=== PATIENT | female | born 1970 | race Caucasian/White ===

== ENCOUNTER → 2017-12-19 | Day surgery (SDC) | payer OTHER ==
--- OUTSIDE RECORDS SUMMARY | 2017-12-19 09:48 | XMS REPORT ---
:1970 Author Organization eClinicalWorks Care Team Providers Name Role Phone Franco, Na Provider Role Unavailable Allergies, Adverse Reactions, Alerts Substance Reaction Event Type N.K.D.A. Info Not Available Non Drug Allergy Problems Problem Type Condition Code Onset Dates Condition Status Assessment Oral contraceptive prescribed Z30.011 Active Problem Contraception Z30.9 Active Assessment IUD contraception Z97.5 Active Medications Medication Code Code Instructions Start End Date Status Dosage System Date Blisovi [facility] [id number] 1.5-30 MG-MCG August 13, Active 1 tablet 1.5/30 Orally Once a 2017 Results No Known Results Summary Purpose eClinicalWorks Submission
--- NOTE | 2017-12-19 13:12 | RAD REPORT ---
EXAM DESCRIPTION: US - Breast Core BX w/US Guidance - 12/19/2017 10:13 am CLINICAL HISTORY: Lateral right breast massN63.11 COMPARISON: Mammogram and ultrasound study December 04, 2017. TECHNIQUE: The patient presents for ultrasound-guided core biopsy of a previously evaluated periareo lar mass in the 8-9 o'clock right breast. The procedure, risks and alternatives were discussed with the patient in detail. After answering all questions, both oral and written consent were obtained. The patient had no contraindicated allergy or medication history. Time-out procedure was performed. Preliminary imaging again identified an approximately 2 cm mass in the lateral periareolar right [address]. There was a hypoechoic bilobed appearance at preliminary evaluation. Anterior right breast was prepped and draped in the usual sterile fashion. From an inferior approach, skin and deeper tissues were anesthetized with 1% lidocaine. Under direct sonographic visualization a 14 gauge vacuum assisted biopsy needle was advanced. The tip was placed at the inferior margin of t he mass and a 2 cm core biopsy was obtained. Imaging showed transit of the needle through the substan ce of the mass. A second core biopsy was obtained through the bilobed hypoechoic component that was m ore retroareolar in location. Again, sonographic guidance was utilized and imaging showed transit of the biopsy needle through the substance of the mass. At the conclusion of the procedure, a localization clip was placed under direct sonographic visualiza tion. At the conclusion of the procedure hemostasis was obtained at the puncture site. No evidence for heriberto ramakrishna or other biopsy complication. Post-procedure care and precaution instructions were given to the patient. All biopsy material was given to pathology for histology/cytology assessment. IMPRESSION: 1. Ultrasound-guided core biopsy was performed of the periareolar right breast as detail ed. 2. Ultrasound-guided placement of a localization clip performed.
== END | disposition home or self-care (01) ==
LOC: DS 09:43
PROVIDERS: ATTEND Clinical Nurse Specialist Women's Health
PROC: 0HBT3ZX Excision of Right Breast, Percutaneous Approach, Diagnostic (ICD-10-PCS; principal; 2017-12-19)
DX: C50.911 Malignant neoplasm of unspecified site of right female breast (principal); Z17.0 Estrogen receptor positive status [ER+]
CPT/HCPCS: 19083; 88305

== ENCOUNTER 2017-12-30 06:34 | Day surgery (SDC) | payer OTHER ==
[2017-12-27 13:18] LABS: Absolute Lymphocytes (CBC) 2.5 K/uL (0.7-4.9); Absolute Monocytes 0.6 K/uL (0.1-1.3); Absolute Neutrophil 5.2 K/uL (1.8-8.0); Basophils % 0.7 % (0-1.3); Eosinophils % 1.6 % (0-4.4); Hematocrit 40.2 % (36.0-45.0); Lymphocytes % 29.9 % (15.3-44.8); MCH 31.2 pg (27.0-35.0); MCV 90.4 fL (80-100); MPV 9.4 fL (7.6-11.3); Monocytes % 6.9 % (3.3-12.3); RBC Red Blood Cell Count 4.44 M/uL (3.86-4.86)
[2017-12-27 13:37] LABS: BUN Blood Urea Nitrogen 10 mg/dL (7-18); Bicarbonate 27 mmol/L (21-32); Glucose Level 99 mg/dL (74-106); Potassium 3.7 mmol/L (3.5-5.1); Sodium Level 139 mmol/L (136-145)
--- NOTE | 2017-12-27 13:53 | RAD REPORT ---
EXAM DESCRIPTION: Kateryna Lane (2 Views)12/27/2017 1:26 pm CLINICAL HISTORY: Breast cancer/preop exam COMPARISON: 2008 FINDINGS: The lungs appear clear of acute infiltrate. The heart is normal size IMPRESSION: No acute abnormalities displayed
--- NOTE | 2017-12-28 04:19 | EKG ---
Test Date: 2017-12-27 Test Time: 13:11:31 Stencil Sprayer: ARCADIO MEASUREMENT RESULTS: Intervals: Rate: 67 IL: 140 QRSD: 70 QT: 420 QTc: 443 [place]: P: 72 IL: 140 QRS: 40 T: 53 INTERPRETIVE STATEMENTS: Normal sinus rhythm Possible Left atrial enlargement Borderline ECG Compared to ECG 01/31/2009 08:19:38 Sinus bradycardia no longer present Electronically Signed On 12-28-17 04:17:17 CDT by Carlos Doshi
--- OUTSIDE RECORDS SUMMARY | 2017-12-30 06:37 | XMS REPORT ---
[...] End Date Status Dosage System Date Blisovi [facility] [id number] 1.5-30 MG-MCG August 13, Active 1 tablet 1.5/30 Orally Once a 2017 Results No Known Results Summary Purpose eClinicalWorks Submission
[2017-12-30] MEDS ORDERED: CEFAZOLIN/SWI 1gm 1 GM/10 ML SYR ONE (06:49)
[2017-12-30] MEDS ORDERED: Ringers Lactate 1,000 ML IV ONE (06:49)
--- NOTE | 2017-12-30 08:09 | RAD REPORT ---
EXAM DESCRIPTION: NM - Lymphoscintigraphy - 12/30/2017 8:03 am CLINICAL HISTORY: Breast cancer, sentinel node biopsy pending COMPARISON: None. TECHNIQUE: Patient was administered 4 periareolar injections using 0.1 millicuries technetium 99 M s ulfur colloid. FINDINGS: Single acquisition was obtained and demonstrates the 4 periareolar injections. There is lo w-level activity in the upper-outer quadrant of the right breast. No axillary activity. Injection time was 0735 hours. IMPRESSION: [place] node injection procedure as detailed.
[2017-12-30] MEDS ORDERED: FENTANYL CITR 100 MCG/2 ML ONE ×2 (08:35→10:05)
[2017-12-30] MEDS ORDERED: ROCURONIUM 50 MG/5 ML VIAL IV ONE (08:35)
[2017-12-30] MEDS ORDERED: PROPOFOL 200 MG/20 ML VIAL IV ONE (08:35)
[2017-12-30] MEDS ORDERED: LIDOCAINE 2% MPF 5 ML VIAL ONE (08:36)
[2017-12-30] MEDS ORDERED: ONDANSETRON HCL 40 MG/20 ML VIAL ONE (08:36)
[2017-12-30] MEDS ORDERED: MIDAZOLAM HCL 2 MG/2 ML INJ ONE (08:36)
[2017-12-30] MEDS: METHYLENE BLUE 0.5% 10 ML AMP ONE ×2 (08:55→09:05)
[2017-12-30] MEDS ORDERED: DEXAMETHASONE 10 MG/ML VIAL ONE (09:11)
[2017-12-30] MEDS ORDERED: NEOSTIGMINE 1 MG/ML -5 ML SYRINGE ONE (10:05)
[2017-12-30] MEDS ORDERED: GLYCOPYRROLATE 0.2 MG/ML SYR ONE (10:05)
[2017-12-30] MEDS ORDERED: MEPERIDINE HCL 50 MG/ML AMP ONE (11:11)
[2017-12-30] MEDS: HYDROMORPHONE HCL 1 MG/ML INJ ONE ×4 (11:12→11:32)
[2017-12-30] MEDS ORDERED: HYDROCODONE/APAP 7.5/325 MG TAB ONE (12:21)
--- NOTE | 2017-12-30 22:19 | OP ---
Date of Procedure: 12/30/2017 Surgeon: Justyn Chris MD Head Of Stock: SUSSY Cote. Preoperative Diagnosis: Right breast cancer. Postoperative Diagnosis: Right breast cancer. Procedure: Right breast mastectomy, sentinel node biopsy, and axillary dissection. Estimated Blood Loss: Minimal. Specimen: Right breast margins free. [place] node, which was positive and axillary dissection. Findings: As above. Anesthesia: General. Complications: None. Drains: FARA #10 flat x2. Disposition: The patient tolerated procedure, stable condition, and taken to recovery in good genera l condition. Procedure In Detail: The patient was brought to the OR and placed in supine position. General anest hesia was begun. The patient was prepped and draped in usual sterile fashion after the right breast was injected with methylene blue and massaged for 5 minutes. Following which the counter for the lym ph node recognition device was used. All counts were recorded in the medical records. A 3 cm incisi on was made in the right axilla and a blue lymph node deep to the subcutaneous tissue was identified. Clips were used to control the vascular pedicles and then the lymph node was removed. It was hard and sent to Pathology for frozen section, it was positive. While the lymph node was being evaluated, a standard mastectomy was done with ellipse of skin incision involving the nipple-areolar complex. Approximately 20 x 8 cm flaps were created superiorly to the clavicle, inferiorly to the insertion of the rectus abdominis muscle, medially to the sternal border, laterally to the anterior border of the latissimus dorsi muscle, and all of the breast tissue off the pectoralis fascia was removed and sent to pathology, and the margins were negative. Once the lymph node came back as positive, then the ax illary dissection was done. Axillary vein, thoracodorsal neurovascular bundle, and the long thoracic neurovascular bundle were identified and Todd's nodes were sampled as well. Vascular clips were n eeded as necessary and the lymph node was dissected. Bleeding was controlled with cautery. Clips we re used as needed and then the specimen was sent to pathology. The entire wound was irrigated. Two drains FARA #10 flat, 1 underneath the flap and 1 in the axilla were placed and secured with 3-0 nylon and then 2-0 chromic and 3-0 chromic used to approximate the subcutaneous tissue and close the skin. Sterile dressing was applied. The patient was awakened and taken to recovery in good general condit ion. Discharge Note: The patient will go to day surgery and home when stable. Disposition: Home. Condition: Stable. Discharge Instructions: Resume home medications and diet. Activity as tolerated. Keep dressing bhavana an and dry. Follow up in my office on and call for appointment. Record FARA output q.12. Te ach patient and family to record as well as strip the tubing p.r.n. Tylenol No. 3 one tablet p.o. q. 4 p.r.n. pain. Keflex 500 mg p.o. q.6. /MODL Voice ID: [id number] Report ID: [id number]
== END 2017-12-30 13:10 | disposition home or self-care (01) ==
LOC: OR 06:34
PROVIDERS: ATTEND Surgery
PROC: 07B50ZX Excision of Right Axillary Lymphatic, Open Approach, Diagnostic (ICD-10-PCS; 2017-12-30)
PROC: 0HTT0ZZ Resection of Right Breast, Open Approach (ICD-10-PCS; principal; 2017-12-30 09:15)
DX: C50.911 Malignant neoplasm of unspecified site of right female breast (principal); C77.3 Secondary and unspecified malignant neoplasm of axilla and upper limb lymph nodes; Z17.0 Estrogen receptor positive status [ER+]
CPT/HCPCS: 36415; 71046; 78195; 80048; 81025; 85025; 88307; 88309; 88331; 88332; 93005; A9541; J0690; J1100; J1170; J2175; J2250; J2405; J2704; J2710; J3010

== ENCOUNTER 2019-05-28 06:32 | Day surgery (SDC) | payer OTHER ==
--- OUTSIDE RECORDS SUMMARY | 2019-05-28 06:36 | XMS REPORT ---
:1970 Author Organization eClinicalWorks Care Team Providers Name Role Phone Herrera Jane Provider Role Unavailable Allergies, Adverse Reactions, Alerts Substance Reaction Event Type N.K.D.A. Info Not Available Non Drug Allergy Problems Problem Type Condition Code Onset Dates Condition Status Assessment Primary osteoarthritis of left knee M17.12 Active Problem Primary osteoarthritis of right M17.11 Active knee Problem Contraception Z30.9 Active Problem Primary osteoarthritis of left knee M17.12 Active Assessment Pain, joint, knee, right M25.561 Active Assessment Primary osteoarthritis of right M17.11 Active knee Assessment Pain, joint, knee, left M25.562 Active Medications Medication Code Code Instructions Start End Status Dosage System Date Date Tamoxifen [facility] [address]-53 Active not Citrate defined Effexor [facility] 0 Active not defined Blisovi Fe [facility] [id number] 1.5-30 MG-MCG August 13, Active 1 tablet 1.5/30 Orally Once a 2017 Results No Known Results Summary Purpose eClinicalWorks Submission
[2019-05-28] MEDS ORDERED: Ringers Lactate 1,000 ML IV ONE (07:20)
[2019-05-28] MEDS ORDERED: propofoL 200 MG/20 ML VIAL IV ONE (07:39)
[2019-05-28] MEDS ORDERED: FENTANYL CITR 100 MCG/2 ML ONE (07:39)
[2019-05-28] MEDS ORDERED: LIDOCAINE 2% MPF 5 ML VIAL ONE (07:39)
[2019-05-28] MEDS ORDERED: MIDAZOLAM HCL 2 MG/2 ML INJ ONE (07:39)
[2019-05-28] MEDS ORDERED: LIDOCAINE 1% W/EPI 1:100,000 MDV 20 ML VIAL ONE (07:52)
[2019-05-28] MEDS ORDERED: SILVER NITRATE 1 APPL TOP ONE (07:53)
[2019-05-28] MEDS ORDERED: ONDANSETRON 4 MG/2 ML VIAL ONE (08:27)
[2019-05-28] MEDS ORDERED: dexAMETHasone 10 MG/ML VIAL ONE (08:27)
[2019-05-28] MEDS ORDERED: KETOROLAC 30 MG/ML INJ ONE (08:43)
[2019-05-28] MEDS ORDERED: DIPHENHYDRAMINE 50 MG/ML VIAL ONE (09:01)
[2019-05-28] MEDS: HYDROMORPHONE HCL 1 MG/ML INJ ONE ×2 (09:06→09:11)
[2019-05-28] MEDS: MEPERIDINE HCL 50 MG/ML ONE ×4 (09:14→09:27)
[2019-05-28] MEDS ORDERED: FENTANYL CITR 250 MCG/5 ML ONE (09:32)
[2019-05-28 09:59] VITALS: TEMP 98.7
[2019-05-28 10:18] VITALS: BP 123/68; O2SAT 97
--- NOTE | 2019-05-28 10:28 | OP ---
Date of Procedure: 05/28/2019 Surgeon: Ursula Jimenez MD Parts Sales Associate: None. No significant fluid deficit. Preoperative Diagnoses: Postmenopausal bleeding, history of breast cancer, patient on current use of tamoxifen. Postoperative Diagnoses: Postmenopausal bleeding, history of breast cancer, patient on current use o f tamoxifen, and endometrial polyp. Anesthesia: General. Procedure Performed: Operative hysteroscopy, polypectomy, and D and C. Specimens: Endometrial polyps and scant endometrial curettings. Complications: None. Drains: None. Condition: Stable. Findings: Endometrial polyp from anterior wall. Rest of the endometrium appeared to be unremarkable . Both tubal ostia were visualized and scant endometrial curettings were obtained. The entire polyp was resected with the scissors and retrieved in its entirety. Description Of Procedure: After informed consent was verified, the patient was taken to the OR, plac ed in a supine fashion. General anesthesia given, placed in a dorsal lithotomy position. Vulva, vag [place], and perineum prepped and draped in a sterile fashion. Speculum placed to expose the cervix. An terior lip grasped with Allis clamps. External os opened with the tip of a hemostat. Diagnostic Sli mLine hysteroscope used to traverse the cervical canal into the uterine cavity under direct vision. Endometrial polyp seen in the anterior wall, slightly irregular, however, mostly unremarkable. The t ubal ostia were visualized by passing underneath it. Endometrium appeared to be mostly unremarkable. Slight cystic change immediately lateral to the polyp on the right, but no other changes in the endom etrium noted. The diagnostic sheath was switched to an operative sheath and scissors were placed. Polyp was cut at its base. The first pair of scissors were not sharp, so changed over to a second pair and was able to completely remove the polyp without problems and then once the polyp was completely detached from its base the hysteroscopic graspers were used to hold the polyp and remove it along with the scope. After the polyp was handed out, the scope was reintroduced. The base of the polypectomy was visualiz ed, hemostatic, and completely resected polyp. Once the scope was removed endometrial curettings wer e performed with a #2 curette. Scant curettings were retrieved, handed off for permanent pathology. Instruments were all removed. Instrument, needle, and sponge counts were correct at the end of the case. Toradol was given at the beginning of the case of this patient. She has 1 week result appoint ment. She will be discharged home today. LACIE/SKYLER Voice ID: [id number] Report ID: [id number]
== END 2019-05-28 10:32 | disposition home or self-care (01) ==
LOC: OR 06:32
PROVIDERS: ATTEND Obstetrics & Gynecology
PROC: 0UDB7ZX Extraction of Endometrium, Via Natural or Artificial Opening, Diagnostic (ICD-10-PCS; 2019-05-28)
PROC: 0UJD8ZZ Inspection of Uterus and Cervix, Via Natural or Artificial Opening Endoscopic (ICD-10-PCS; 2019-05-28)
PROC: 0UB97ZX Excision of Uterus, Via Natural or Artificial Opening, Diagnostic (ICD-10-PCS; principal; 2019-05-28 08:30)
DX: N95.0 Postmenopausal bleeding (principal); Z79.810 Long term (current) use of selective estrogen receptor modulators (SERMs); Z85.3 Personal history of malignant neoplasm of breast; N84.0 Polyp of corpus uteri; E11.9 Type 2 diabetes mellitus without complications; Z90.11 Acquired absence of right breast and nipple; Z83.3 Family history of diabetes mellitus
CPT/HCPCS: 58558; 81025; 88305; J2704; J1200; J2250; J3010; J1100; J2175; J1170; J7120; J2405

== ENCOUNTER 2021-06-20 07:52 | Day surgery (SDC) | payer BC ==
[2021-06-20] MEDS ORDERED: Ringers Lactate 1,000 ML IV ONE (08:20)
[2021-06-20] MEDS ORDERED: ACETAMINOPHEN 500 MG TAB ONE (10:09)
[2021-06-20] MEDS ORDERED: CELECOXIB 100 MG CAPSULE ONE (10:09)
[2021-06-20] MEDS ORDERED: KETOROLAC 30 MG/ML INJ ONE (10:14)
[2021-06-20] MEDS ORDERED: dexAMETHasone 10 MG/ML VIAL ONE (10:14)
[2021-06-20] MEDS ORDERED: propofoL 200 MG/20 ML VIAL IV ONE (10:14)
[2021-06-20] MEDS ORDERED: FENTANYL CITR 100 MCG/2 ML ONE (10:14)
[2021-06-20] MEDS ORDERED: MIDAZOLAM HCL 2 MG/2 ML INJ ONE (10:14)
[2021-06-20] MEDS ORDERED: ONDANSETRON 4 MG/2 ML VIAL ONE (10:14)
[2021-06-20] MEDS ORDERED: LIDOCAINE 1% W/EPI 1:100,000 MDV 50 ML VIAL ONE (10:18)
[2021-06-20] MEDS ORDERED: IBUPROFEN 200 MG TAB PO PRN (11:19)
[2021-06-20 12:31] VITALS: BP 129/71; TEMP 97.6
[2021-06-20 12:32] VITALS: O2SAT 96
--- NOTE | 2021-06-20 13:54 | OP ---
Date of Procedure: 06/20/2021 Surgeon: Ursula Jimenez MD Forensic Anthropologist: None. Preoperative Diagnosis: Postmenopausal bleeding and endometrial polyps. Postoperative Diagnosis: Postmenopausal bleeding and endometrial polyps. Procedures Performed: Operative hysteroscopy, polypectomy, and D and C. Anesthesia: General with LMA and a paracervical block. Specimens: Endometrial polyps and curettings. Complications: No complications. Drains: No drains. Condition: The patient's condition is stable. Findings: Two small tiny polyps in the anterior wall at the fundal area of the endometrial canal and rest of the endometrial canal slightly more vascular and thickened. No other abnormalities. The po lyps were completely removed and endometrial cavity was globally curetted. Procedure In Detail: After informed consent was verified, she was taken back to OR, placed in supine fashion on the operating table. After general anesthesia was given, she was placed in a dorsal lith otomy position. Vulva and vagina were prepped and draped in a sterile fashion. Speculum was placed to expose the cervix. Anterior lip injected with 1% lidocaine mixed with 1:100,000 epinephrine 8 cc here and 8 cc in each of the 2 other sites at the 4 and 8 o'clock positions. The cervix was dilated to 16-Kiswahili. Then, MyoSure Lite device was primed and set pressure at 80 mmH g. Normal saline was used for distention medium and the scope was introduced into the uterine cavity and the MyoSure Lite device was taken and using this, the polyps were first removed and the curettag e was performed in a global fashion. The scope and MyoSure device were removed. Instrument, needle, and sponge counts were correct at the end of the case. The fluid deficit was only 125 mL. The uvaldo ent tolerated the procedure well. She was recovered from anesthesia in the OR and taken to PACU in s table condition. She will follow up with me in 1 week. LACIE/SKYLER Voice ID: [id number] Report ID: [id number]
[2021-06-21] MEDS ORDERED: ANASTROZOLE 1 MG TAB PO SCH (09:00)
[2021-06-21] MEDS ORDERED: VITAMIN D 5,000 UNIT CAP PO SCH (09:00)
[2021-06-21] MEDS ORDERED: HOME MED 1 EA UNK (Venlafaxine Hcl [Effexor] 25 MG Tablet) PO SCH (09:00)
[2021-06-21] MEDS ORDERED: HOME MED 1 EA UNK (Calcium Carbonate [Calcium] 600 MG Tablet) PO SCH (09:00)
== END 2021-06-20 12:20 | disposition home or self-care (01) ==
LOC: OR 07:52
PROVIDERS: ATTEND Obstetrics & Gynecology
PROC: 0UDB7ZX Extraction of Endometrium, Via Natural or Artificial Opening, Diagnostic (ICD-10-PCS; 2021-06-20)
PROC: 0UJD8ZZ Inspection of Uterus and Cervix, Via Natural or Artificial Opening Endoscopic (ICD-10-PCS; 2021-06-20)
PROC: 0UB97ZX Excision of Uterus, Via Natural or Artificial Opening, Diagnostic (ICD-10-PCS; principal; 2021-06-20 10:30)
DX: N95.0 Postmenopausal bleeding (principal); N84.0 Polyp of corpus uteri; Z20.822 Contact with and (suspected) exposure to COVID-19
CPT/HCPCS: 88305; 58558; U0003; J2704; J2250; J3010; J1100; J7120; J2405

== ENCOUNTER → 2023-03-19 | Emergency (ER) | payer BC ==
[~2023-03-19] MED LIST: DIAZEPAM 10 MG/2 ML INJ SYRINGE ONE; DIAZEPAM 5 MG TABLET ONE; MORPHINE 4 MG/ML SYR ONE; NA CHLORIDE 0.9% 1,000 ML ONE; ONDANSETRON 4 MG/2 ML VIAL ONE
[2023-03-19 08:46] LABS: Absolute Lymphocytes (CBC) 2.1 K/uL (0.7-4.9); Lymphocytes % 22.1 % (15.3-44.8); MPV 9.2 fL (7.6-11.3); Platelets 337 thou/uL (152-406); RBC Red Blood Cell Count 4.56 M/uL (3.86-4.86)
[2023-03-19 09:04] LABS: Bilirubin Total 0.5 mg/dL (0.2-1.0); Protein, Total 7.8 g/dL (6.4-8.2)
--- NOTE | 2023-03-19 09:11 | RAD REPORT ---
EXAM DESCRIPTION: CT - Abdomen Pelvis Wo Contrast - 03/19/2023 8:55 am CLINICAL HISTORY: Abdominal pain COMPARISON: 2020 TECHNIQUE: Computed axial tomography of the abdomen and pelvis was obtained. IV and oral contrast we re not requested. All CT scans are performed using dose optimization technique as appropriate and may include automated exposure control or mA/KV adjustment according to patient size. FINDINGS: The evaluation of solid organs, vessels and bowel is limited secondary to the lack of con trast administration. The liver, spleen, pancreas, adrenals and kidneys appear grossly normal. The appendix is normal. There is no evidence of diverticulitis. A small umbilical hernia. No adnexal mass IMPRESSION: No acute abnormality is displayed.
--- NOTE | 2023-03-19 11:17 | EDPHYS ---
Physician Documentation [facility] Name: Ludy Boudreaux Age: 53 yrs Sex: Female : 1970 Arrival Date: 03/19/2023 Time: 08:14 Bed 12 Private MD: ED Physician Andrew Russell HPI: 03/19 08:38 This 53 yrs old Female presents to ER via Wheelchair with complaints of Back Pain. ms3 08:38 53-year-old female with past medical history of breast cancer presents to the emergency ms3 department for right lower back pain that radiates down her right leg. Patient rates the pain a 10/10. Patient denies nausea, vomiting, abdominal pain, urinary symptoms. Patient states movement makes the pain worse. Patient denies any alleviating factors. Historical: - Allergies: 08:32 No Known Allergies; hb - Home Meds: 08:32 oral chemo - maintenance [Active]; hb - PMHx: 08:32 Breast Cancer; hb - Immunization history:: Adult Immunizations up to date. - Social history:: Smoking status: Patient denies any tobacco usage or history of. ROS: 08:38 Constitutional: Negative for fever, and chills. Neck: Negative for injury, pain, and ms3 swelling, Cardiovascular: Negative for chest pain, and palpitations. Respiratory: Negative for shortness of breath, cough, wheezing, and pleuritic chest pain, Abdomen/GI: Negative for abdominal pain, nausea, vomiting, diarrhea, and constipation, 08:38 Back: Positive for Back pain, 08:38 All other systems are negative, Exam: 08:38 Constitutional: This is a well developed, well nourished patient who is awake, alert, ms3 and in no acute distress. Head/Face: Normocephalic, atraumatic. Chest/axilla: Normal chest wall appearance and motion. Nontender with no deformity. Cardiovascular: Regular rate and rhythm with a normal S1 and S2. No gallops, murmurs, or rubs. Normal PMI, no JVD. No pulse deficits. Respiratory: Lungs have equal breath sounds bilaterally, clear to auscultation and percussion. No rales, rhonchi or wheezes noted. No increased work of breathing, no retractions or nasal flaring. Abdomen/GI: Soft, non-tender, with normal bowel sounds. No distension or tympany. No guarding or rebound. No evidence of tenderness throughout. 08:38 Back: pain, that is severe, of the right low back, muscle spasm, is appreciated in the right low back, Vital Signs: 08:24 BP 168 / 80; Pulse 89; Resp 16; Temp 98.3; Pulse Ox 100% on R/A; Weight 73.94 kg; hb Height 5 ft. 2 in. ; Pain 10/10; 08:24 Body Mass Index 29.81 (73.94 kg, 157.48 cm) hb 08:24 Pain Scale: Adult hb MDM: 08:38 Patient medically screened. ms3 08:38 Differential diagnosis: Fracture Neoplasm ruptured disc, Ureterolithiasis vertebral ms3 fracture. 11:17 Data reviewed: vital signs, nurses notes, lab test result(s), radiologic studies, and ms3 as a result, I will discharge patient. I considered the following discharge prescriptions or medication management in the emergency department Medications were administered in the Emergency Department. See MAR. Care significantly affected by the following chronic conditions: Cancer. Counseling: I had a detailed discussion with the patient and/or guardian regarding the historical points, exam findings, and any diagnostic results supporting the discharge/admit diagnosis, lab results, radiology results, the need for outpatient follow up, to return to the emergency department if symptoms worsen or persist or if there are any questions or concerns that arise at home. Response to treatment: the patient's symptoms have markedly improved after treatment, and as a result, I will discharge patient. ED course: Discussed labs, CT scan with the patient and her . Patient to follow-up with primary care physician in 2 to 3 days. Patient understands and agrees with plan. All questions were answered. Patient given prescription for Flexeril and ibuprofen. Return precautions discussed include fevers, weakness, numbness, bowel or bladder incontinence, or any other concerns. On reevaluation patient symptoms improved, patient is alert and oriented x 4, no apparent distress, nontoxic-appearing, speaking full sentences. 03/19 08:42 Order name: Comprehensive Metabolic Panel; Complete Time: 09:05 EDMS 03/19 08:42 Order name: CBC with Automated Diff; Complete Time: 09:05 EDMS 03/19 08:26 Order name: CT Abd/Pelvis - Without Contrast ms3 03/19 08:41 Order name: Abdomen ; Complete Time: 09:19 EDMS 03/19 08:26 Order name: IV Saline Lock; Complete Time: 08:39 ms3 03/19 08:26 Order name: Labs collected and sent; Complete Time: 08:39 ms3 Administered Medications: 08:55 Drug: morphine IVP or IV 4 mg IVP once over 4 mins Route: IVP; Infused Over: 4 mins; iw Site: left antecubital; 09:26 Drug: Diazepam IVP 1 mg IVP once Route: IVP; Site: left antecubital; iw 10:00 Follow up: Response: No adverse reaction; Pain is decreased iw 09:27 Drug: NS 0.9% IV 1000 ml IV at 1 bolus Per protocol; 1000 mL bolus Route: IV; Rate: 1 iw bolus; Site: left antecubital; 11:00 Follow up: IV Status: Completed infusion iw 11:00 Drug: Diazepam PO 5 mg PO once Route: PO; iw Disposition Summary: 03/19/23 11:16 Discharge Ordered Notes: Location: Home ms3 Condition: Stable ms3 Diagnosis - Sciatica, right side ms3 Followup: ms3 - With: Private Physician - When: 2 - 3 days - Reason: Recheck today's complaints Discharge Instructions: - Discharge Summary Sheet ms3 - Sciatica ms3 Forms: - Work release form iw - Medication Reconciliation Form ms3 - Thank You Letter ms3 - Antibiotic Education ms3 - Prescription Opioid Use ms3 - Patient Portal Instructions ms3 - Leadership Thank You Letter ms3 Prescriptions: - Ibuprofen 600 mg Oral Tablet - take 1 tablet ORAL route every 6 hours As needed take with food; 30 tablet; ms3 Refills: 0, Product Selection Permitted - Cyclobenzaprine 10 mg Oral tablet - take 1 tablet ORAL route every 8 hours As needed; 20 tablet; Refills: 0, ms3 Product Selection Permitted Signatures: Dispatcher [employer] Jennifer Fonseca RN RN iw Baxter, Heather, RN RN Andrew Mccauley DO DO ms3
--- NOTE | 2023-03-19 11:17 | ER ---
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 Coronavirus screen: At this time, the client does not indicate any symptoms associated with coronavirus-19. Ebola Screen: No symptoms or risks identified at this time. Initial Sepsis Screen: Does the patient meet any 2 criteria? No. Patient's initial sepsis screen is negative. Does the patient have a suspected source of infection? No. Patient's initial sepsis screen is negative. Risk Assessment: Do you want to hurt yourself or someone else? Patient reports no desire to harm self or others. Onset of symptoms was March 19, 2023. 08:24 Method Of Arrival: Wheelchair hb 08:24 Acuity: LU 3 hb Historical: - Allergies: 08:32 No Known Allergies; hb - Home Meds: 08:32 oral chemo - maintenance [Active]; hb - PMHx: 08:32 Breast Cancer; hb - Immunization history:: Adult Immunizations up to date. - Social history:: Smoking status: Patient denies any tobacco usage or history of. Vital Signs: 08:24 BP 168 / 80; Pulse 89; Resp 16; Temp 98.3; Pulse Ox 100% on R/A; Weight 73.94 kg; hb Height 5 ft. 2 in. ; Pain 10/10; 08:24 Body Mass Index 29.81 (73.94 kg, 157.48 cm) hb 08:24 Pain Scale: Adult hb ED Course: 08:15 Patient arrived in ED. mr 08:18 Andrew Russell DO is Attending Physician. ms3 08:32 Triage completed. hb 08:33 Arm band placed on. hb 08:34 Inserted saline lock: 22 gauge in left antecubital area, using aseptic technique. Blood ds4 collected. 08:55 Jennifer Bradford, SUSANNAH is Primary Nurse. iw 08:57 Abdomen In Process Unspecified. EDMS Administered Medications: 08:55 Drug: morphine IVP or IV 4 mg IVP once over 4 mins Route: IVP; Infused Over: 4 mins; iw Site: left antecubital; : Drug: Diazepam IVP 1 mg IVP once Route: IVP; Site: left antecubital; iw 10:00 Follow up: Response: No adverse reaction; Pain is decreased iw 09:27 Drug: NS 0.9% IV 1000 ml IV at 1 bolus Per protocol; 1000 mL bolus Route: IV; Rate: 1 iw bolus; Site: left antecubital; 11:00 Follow up: IV Status: Completed infusion iw 11: Drug: Diazepam PO 5 mg PO once Route: PO; iw Outcome: 11:16 Discharge ordered by ms3 11:33 Patient left the ED. iw Signatures: Dispatcher [employer] EDMS Lorrie Aguirre, Robbie Reg mr Jennifer Bradford, RN RN iw Juan Daniel Solorio ds4 Yadi El RN RN hb Sims, Marcus, DO LICONA ms3
[2023-03-19 12:01] VITALS: BP 168/80; TEMP 98.3; O2SAT 100
== END ==
LOC: ER 08:14
DX: M54.31 Sciatica, right side (principal); Z85.3 Personal history of malignant neoplasm of breast
CPT/HCPCS: 96361; 85025; 36415; 80053; 74176; 96375; 96374; 99284; J3360; J7030; J2405